=== PATIENT | male | born 1950 | race Two or more races ===

== ENCOUNTER 2024-08-31 08:47 | Inpatient (IN) | payer MEDICARE ==
[2024-08-30 09:54] LABS: Urine Bacteria None Seen /hpf (None Seen)
[2024-08-30 10:07] LABS: Basophils # (auto) 0 10 ^3/uL (0-0.2); Basophils % (auto) 0.5 % (0.0-2.0); Eosinophils # (auto) 0.1 10 ^3/uL (0-0.8); Eosinophils % (auto) 1.4 % (0.0-7.0); Hematocrit 42.5 % (41.0-53.0); Hemoglobin 14.4 g/dL (13.5-17.5); Lymphocytes # (auto) 1.5 10 ^3/uL (0.4-5.4); Lymphocytes % (auto) 24.4 % (10.0-50.0); Mean Corpuscular Hemoglobin 29.6 pg (28.0-32.0); Mean Corpuscular Hgb Conc. 33.8 g/dL (32.0-36.0); Mean Corpuscular Volume 87.5 fL (80.0-100.0); Monocytes # (auto) 0.5 10 ^3/uL (0-1.3); Monocytes % (auto) 7.5 % (0.0-12.0); Neutrophils # (auto) 4.2 10 ^3/uL (1.6-8.6); Neutrophils % (auto) 66.2 % (37.0-80.0); Nucleated Red Blood Cells % 0.1 %; Platelet Count (auto) 208 10^3/uL (140-450); Red Blood Cells 4.86 10^6/uL (4.5-5.90); Red Cell Distribution Width 14.7 % (11.8-14.3); White Blood Cell 6.3 10^3/uL (4.4-10.8)
[2024-08-30 10:15] LABS: Urine Blood Negative /uL (Negative); Urine Clarity Clear (Clear); Urine Color Yellow (Yellow); Urine Protein, UAD Negative (Negative); Urine Specific Gravity 1.017 (1.001-1.035); Urine Squamous Epithelial Cell FEW /hpf (<5); Urine Urobilinogen Normal (Negative); Urine WBC 1 /HPF (0-3); Urine pH 5.5 (5.0-9.0)
[2024-08-30 10:22] LABS: INR 1.05 (0.9-1.15); Prothrombin Time 11.1 sec (9.3-11.8)
[2024-08-30 10:44] LABS: Albumin 4.3 g/dL (3.2-4.8); Anion Gap 8 (5-15); Aspartate Aminotransferase 26 U/L (<34); BUN/Creatinine Ratio 14.8 (10.0-20.0); Bilirubin, Total 0.5 mg/dL (0.2-1.0); Blood Urea Nitrogen 12 mg/dL (9-23); Calcium 10.3 mg/dL (8.7-10.4); Carbon Dioxide 28 mmol/L (20-31); Glucose 105 mg/dL (74-106); Potassium 4.4 mmol/L (3.5-5.1); Sodium 144 mmol/L (136-145); Total Protein 6.5 g/dL (5.7-8.2)
[2024-08-30 10:46] LABS: Alanine Aminotransferase 41 U/L (7-40); Alkaline Phosphatase 122 U/L (46-116); Chloride 108 mmol/L (98-107)
[~2024-08-31] VITALS: Ht 170.2 cm; Wt 90.1 kg
[2024-08-31] MEDS ORDERED: SODIUM CHLORIDE LOCK 50 ML ONE (09:20)
[2024-08-31] MEDS ORDERED: HYDROmorphone HCL 2 MG/ML VL/or syr ONE (09:20)
[2024-08-31] MEDS ORDERED: fentaNYL CITRATE 5 ML ONE ×2 (09:20→13:16)
[2024-08-31] MEDS ORDERED: KETAMINE 50mg/ML 1ml syringe ONE (09:20)
[2024-08-31] MEDS ORDERED: DexAMETHasone SOD PHOS 10MG/1ML VIAL INJ ONE (09:20)
[2024-08-31] MEDS ORDERED: MIDAZOLAM HCL 2MG/2ML 2ml VIAL (1mg/ml) ONE (09:20)
[2024-08-31] MEDS ORDERED: fentaNYL CITRATE 100 MCG/2 ML VL ONE (09:20)
[2024-08-31] MEDS ORDERED: ROCURONIUM 10MG/ML 10ML VIAL IV ONE (09:20)
[2024-08-31] MEDS ORDERED: PROPOFOL 10 MG/ML 20 ML IV ONE (09:20)
[2024-08-31] MEDS ORDERED: LIDOCAINE 1% INJ PF 5ML AMP ONE (09:20)
[2024-08-31] MEDS ORDERED: LIDOCAINE 2% TOPICAL JELLY 5 ML URJT TOP ONE (09:20)
[2024-08-31] MEDS ORDERED: ONDANSETRON HCL 4 MG/2 ML VIAL ONE (09:20)
[2024-08-31] MEDS: ceFAZolin 2 GM/D5W50ml 50 ML IV ONE (09:36)
[2024-08-31] MEDS: TRANEXAMIC ACID 20 ML ONE (09:53)
[2024-08-31] MEDS: levoFLOXacin 500MG 100 ML IV ONE (09:54)
--- NOTE | 2024-08-31 10:29 | DVH ---
XY CHEST PORTABLE, HISTORY: PRE-OP EVAL COMPARISON: None None TECHNICAL DATA: 1 view of the chest was obtained. FINDINGS: Lines and tubes: None Cardiomediastinal silhouette: normal Pulmonary vasculature: normal Lung expansion: normal Lung airspace: normal Lung interstitium: normal Pleura: normal Pneumothorax: no Bones: Unremarkable Other: no IMPRESSION: No acute intrathoracic abnormality.
--- NOTE | 2024-08-31 10:32 | DVHHP2 ---
Admitting Diagnosis: lumbar spinal stenosis History of Present Illness Timing/Duration of Neck Pain: Getting worse Quality of Neck Pain: Aching, Burning, Cramping Timing/Duration of Back Pain: Getting worse Quality of Back Pain: Aching, Burning, Cramping Back Pain Location: Lumbar spine Back Pain Radiation: Buttocks, Thigh area, Knees, Feet H&P Exam Vital Signs Vital Signs Date Time Temp Pulse Resp B/P (MAP) Pulse Ox O2 Delivery O2 Flow Rate FiO2 08/31/24 09:35 97.2 89 16 144/83 (103) 97 97.2 General Appeara: Well developed, Well nourished, Normal Appearance Head Exam: Normal inspection Neck Exam: Normal inspection, Non-tender, Normal alignment Ear Exam: bilateral ear Auricle normal, bilateral ear Canal normal, bilateral ear TM normal Nasal Exam: Normal inspection Abdominal Exam: Normal bowel sounds, Soft, No tenderness, No hepatospenomegaly, No masses Rectal Exam: Deferred Back Exam: Decreased range of motion, Muscle spasm Male Genital Exam: Not done Shoulder Exam: Normal inspection, Non-tender, Normal ROM Elbow/Forearm Exam: Normal inspection, Non-tender, Normal ROM Hand Exam: Normal inspection, Non-tender, Normal ROM Hip exam: Normal inspection, Non-tender, Normal range of motion Legs: bilateral leg non-tender, bilateral leg normal inspection, bilateral leg normal range of motion, bilateral leg no evidence of injury Knees: bilateral knee non-tender, bilateral knee normal inspection, bilateral knee normal range of motion, bilateral knee no evidence of injury Ankle Exam: bilateral ankle Normal inspection, bilateral ankle Non-tender, bilateral ankle Normal range of motion, bilateral ankle No evidence of injury Tendon/ Neuro: Motor deficit, Sensory deficit [place] Exam: Normal hearing, Normal speech, PERRL Motor/Sensory: Weak motor strength RLE, Weak motor strength LLE Deep Tendon Ref: All intact Neuro/Mental St: Alert, Oriented Appearance: Appropriate appearance, Appropriate insight Eye contact/ Speech: Cooperative, Good eye contact, Normal speech Coordination/Gait: Normal finger->nose, Normal gait, Negative Romberg's sign Skin Exam: Normal inspection, Normal color, Warm/dry Lymphatic: Normal inspection Labs/Xrays Labs Test 08/30/24 09:35 Range/Units White Blood Count 6.3 4.4-10.8 10^3/uL Red Blood Count 4.86 4.5-5.90 10^6/uL Hemoglobin 14.4 13.5-17.5 g/dL Hematocrit 42.5 41.0-53.0 % Mean Corpuscular Volume 87.5 80.0-100.0 fL Mean Corpuscular Hemoglobin 29.6 28.0-32.0 pg Mean Corpuscular Hemoglobin Concent 33.8 32.0-36.0 g/dL Red Cell Distribution Width 14.7 H 11.8-14.3 % Platelet Count 208 140-450 10^3/uL Mean Platelet Volume 9.8 6.9-10.8 fL Neutrophils (%) (Auto) 66.2 37.0-80.0 % Lymphocytes (%) (Auto) 24.4 10.0-50.0 % Monocytes (%) (Auto) 7.5 0.0-12.0 % Eosinophils (%) (Auto) 1.4 0.0-7.0 % Basophils (%) (Auto) 0.5 0.0-2.0 % Neutrophils # (Auto) 4.2 1.6-8.6 10 ^3/uL Lymphocytes # (Auto) 1.5 0.4-5.4 10 ^3/uL Monocytes # (Auto) 0.5 0-1.3 10 ^3/uL Eosinophils # (Auto) 0.1 0-0.8 10 ^3/uL Basophils # (Auto) 0 0-0.2 10 ^3/uL Nucleated Red Blood Cells 0.1 % Prothrombin Time 11.1 9.3-11.8 sec Prothrombin Time INR 1.05 0.9-1.15 Activated Partial Thromboplast Time 27.0 24.5-34.5 SEC Urine Color Yellow Yellow Urine Clarity Clear Clear Urine pH 5.5 5.0-9.0 Urine Specific [place] 1.017 1.001-1.035 Urine Protein Negative Negative Urine Ketones Negative Negative Urine Blood Negative Negative /uL Urine Nitrite Negative Negative Urine Bilirubin Negative Negative Urine Urobilinogen Normal Negative mg/dL Urine Leukocyte Esterase Negative Negative /uL Urine RBC 1 0 - 3 /hpf Urine Microscopic WBC 1 0-3 /HPF Urine Squamous Epithelial Cells Few <5 /hpf Urine Bacteria None seen None Seen /hpf Urine Glucose Normal Normal mg/dL Sodium Level 144 136-145 mmol/L Potassium Level 4.4 3.5-5.1 mmol/L Chloride Level 108 H 98-107 mmol/L Carbon Dioxide Level 28 20-31 mmol/L Anion Gap 8 5-15 Blood Urea Nitrogen 12 9-23 mg/dL Creatinine 0.81 0.700-1.30 mg/dL Glomerular Filtration Rate Calc 94 >90 mL/min BUN/Creatinine Ratio 14.8 10.0-20.0 Serum Glucose 105 74-106 mg/dL Calcium Level 10.3 8.7-10.4 mg/dL Total Bilirubin 0.5 0.2-1.0 mg/dL Aspartate Amino Transferase (AST) 26 <34 U/L Alanine Aminotransferase (ALT) 41 H 7-40 U/L Alkaline Phosphatase 122 H 46-116 U/L Total Protein 6.5 5.7-8.2 g/dL Albumin 4.3 3.2-4.8 g/dL Assessment/Plan Primary Diagnosis lumbar spinal stenosis Plan admit for elective lumbar spine surgery Plan discussed with: Patient DAHLIA VIVAS MD Aug 31, 2024 10:32
[2024-08-31] MEDS ORDERED: HYDROmorphone HCL 2 MG/ML VL/or syr IV PRN (11:15)
[2024-08-31] MEDS ORDERED: MORPHINE SULFATE 4 MG/ML SYR/VIAL IV PRN (11:15)
[2024-08-31] MEDS: METOCLOPRAMIDE HCL 5MG/ml INJ 2ml VIAL IV ONE (11:15)
[2024-08-31] MEDS: KETOROLAC TROMETH 30 MG/ML 1ML VIAL IV ONE (11:15)
--- NOTE | 2024-08-31 11:16 | DVHPN2 ---
Progress Note - Surgical Date Seen: Sep 01, 2024 Post op day Post op day: 1 Subjective Patient reports: No new complaints, Feels better Review of Systems: HEENT:Normal, CVS:Normal, RESPIRATORY:Normal, GI:Normal, :Normal, MSK:Normal (Patient has a history of low back pain), NEURO:Abnormal (Patient has a history of low back pain affecting both legs) Objective Vital signs Vital Sign Date Time Temp Pulse Resp B/P (MAP) Pulse Ox O2 Delivery O2 Flow Rate FiO2 08/31/24 09:35 97.2 89 16 144/83 (103) 97 97.2 Medications Current Medications Medications Dose Ordered Sig/Domenic Route Start Time Stop Time Status Last Admin Dose Admin Hydromorphone HCl 0.5 mg Q10M PRN IV 08/31/24 11:15 08/31/24 11:56 Morphine Sulfate 2 mg Q4H PRN IV 08/31/24 11:15 08/31/24 15:16 Hydromorphone HCl 0.25 mg Q10M PRN IV 08/31/24 11:15 08/31/24 11:46 Morphine Sulfate 1 mg Q30M PRN IV 08/31/24 12:00 08/31/24 14:01 Laboratory Laboratory Tests 08/30/24 09:35 Test 08/30/24 09:35 Range/Units Serum Glucose 105 74-106 mg/dL Examination: GENERAL:Normal, HEENT:Normal, NECK:Normal, LUNGS:Normal, CVS:Normal, ABDOMEN:Normal, MSK:Normal (Patient reports resolution and preoperative symptoms, patient able to ambulate in room with little assistance), SKIN:Normal (Cristino dressing intact drain 1. With 175 mL out on the day of surgery and 80 ML out overnight shifts day one, drain 2. Reported to have minimal drainage but it has not been recorded. Drain 2. Has been discontinued), NEURO:Normal (She reports resolution of preoperative symptoms able to ambulate with minimal assistance, is experiencing expected postoperative low back pain), :Normal Problem List/Assessment/Plan Problems: (1) Postoperative pain after spinal surgery (2) Muscle spasm of back Assessment and Plan Events of today Patient tolerating food and liquids we will convert IV fluids to normal saline lock Drain 2. With minimal output since surgery discontinued today Continue to monitor drain one Physical therapy evaluation and recommendations still pending Patient reporting resolution and preoperative symptoms, patient experiencing expected postoperative pain which is well controlled with current pain regime Confirm patient's pharmacy of choice Patient is progressing to discharge as soon as drain 1 is discontinued, patient will be cleared to discharge POD # 1 -Disposition: -Pending -Discharge RX: Pending -Follow up appointment: with Dr Perez on [phone] [id number] [facility] [address] [place] [address] -Pain: - IV pain meds post op day 1, with PO supplementation, goal is to progress weaning off IV medications and control pain with PO only. morphine 1mg q 4 hours (PAIN 7-10) - P.O. analgesics:Tylenol 650MG (PAIN 1-3) [place] 10/325 mg (PAIN 4-6) - Muscle relaxers scheduled administration. This is a beneficial medications for the incisional pain as it is mostly related to muscle spasms. Flexeril 10 mg TID - Cepacol throat lozenges as needed for sore throat -Antibiotics Operative recommendations: -Postoperative dose:-Post operative antibiotics cefazolin 1 g IV piggyback every 8 hours x 48 hours total of 6 doses -DVT PPX: -Hold all chemical DVT/ blood thinners for 14 days postoperatively -use mechanical DVT PPX such as SCD's, ambulation -Activity: -Pending PT evaluation and patients progression -Sit at side of bed for meals -Goal: Ambulate independently and safely (may use assistive devices if needed) -Medical Therapy goals: -Afebrile- Patient may develop a expected post operative fever by day 2-3, this may not be accompanied with a elevation in WBC. if fever develops: Acetaminophen for fever. Albuterol nebulizer Tx every 12 hours for 24 hours to facilitate adequate lung expansion and prevent development of atelectasis. -Euglycemic: bloods sugars under 130mmol/L for optimal healing -Normotensive: Avoid events of hypertension. This helps to keep post operative healing intact and avoids destabilization of beneficial hemostatic coagulation. -Lumbar: -If patient is comfortable encouraged the patient to lay on their side to facilitate wound healing -Drains: -Hemovac drains: These will be to full compression unless otherwise ordered. Please record and document output AND characteristic of fluid present independently EVERY 6 hours more often as needed. if there in no output indicate this by documenting 0ml. If output is greater than 100 ml in one hour of adam blood call provider. These drains will be removed once the drainage is at a acceptable level (generally less than 100ml in 24 hours) -Cristino dressing: This will stay in place and will be removed at the patients follow up visit. Nursing is to assess the seal and power source. The seal should be intact and the power source should have a green flashing light indicating it is functioning well. Batteries can last up to 14 days. If a leak develops the dressing edges can be reinforced with a Tegaderm dressing to reestablish intact seal. The Cristino dressing is NOT a wound vac. This does not get changed, it does not need home health management. -Record output independently, drain 1. Is a deep drain and drain 2. Is a superficial drain. Wound drainage is described by type, color, amount, and odor. Drainage can be 1 Serous: Clear and thin, may be present in healing healthy wound. 2 Serosanguineous containing blood may also be present and healthy healing wound 3. Sanguinous primarily blood 4. Purulent this is thick, white, and pus like. It may be indicated to give of a infection and should constitute a call to the provider immediately with the plan that the sample should be cultured. -Tariq: discontinued in OR -Dressings Take care not to disrupt the CRISTINO dressing seal. If there is a break in the seal it can be trouble shot with a Tegaderm dressing. -Dressing to Hemovac drains may be changed once the drains have been removed by the provider. -Bowel management: -Colace 100mg bid -Diet: -Clear liquid diet and advance as patient tolerates within dietary limitations ( example: diabetic, Cardiac) -Incentive Spirometer: -10 x hour while awake, RN please educate and observe repeat demonstration, have IS at bedside POD #1 -X-rays: - none indicated at this time -Consults: -Physical Therapy evaluation, treatment recommendations, and discharge recommendations Call with questions Ban Garcia ACNP- Orthopaedic Spine Surgery nurse practitioner For Dr Soraya Perez Patient was examined, chart reviewed, labs evaluated, and diagnostic studies and findings analyzed. Case was discussed with Dr. Lazarus Perez who formulated the plan of care. This medical document was created using an electronic medical record system with [employer] system. Although this document has been carefully reviewed, there might still be some phonetic and typographical errors. These areas are purely typographical due to imperfections of the software programs, and do not reflect any compromise in the patient's medical care. Plan discussed with Plan discussed with: Patient, Spouse, Other (Jackelyn RN 402) Visit Coding Surgery Date of Service if different f: Aug 31, 2024 Billing Provider: BESSIE GARCIA NP Surgery Visit Codes: NOT BILLABLE BESSIE GARCIA NP Aug 31, 2024 11:16
[2024-08-31] MEDS ORDERED: MORPHINE SULFATE INJ 2 MG/ml SYRG IV PRN ×3 (12:00→14:00)
[2024-08-31] MEDS: GELATIN 1 SPONGE SIZE 100 TOP ONE (13:05)
[2024-08-31] MEDS: THROMBIN (BOVINE) 5000 UNIT SOL VIAL ONE (13:05)
[2024-08-31] MEDS ORDERED: ePHEDrine SULFATE 50 MG/ML AMP ONE (13:57)
[2024-08-31] MEDS: CYCLOBENZAPRINE HCL 10 MG TAB PO SCH (14:00)
[2024-08-31] MEDS ORDERED: NITROGLYCERIN 0.4 MG SL TAB SL PRN (14:00)
[2024-08-31] MEDS: ceFAZolin 1GM/50ML 50 ML IV SCH (14:00)
[2024-08-31] MEDS ORDERED: ACETAMINOPHEN 325 MG TAB PO PRN (14:00)
--- NOTE | 2024-08-31 14:05 | DVHOP2 ---
Operative Report - 2 Report Details Date: 08/31/24 Preop Diagnosis: lumbar spinal stenosis with severe neurogenic claudication Postop Diagnosis: Lumbar stenosis with neurogenic claudication Surgeon: Lazarus Perez MD Resource Conservation Manager: Sendy Gómez NP Anesthesiologist: shuan Anesthesia: General Consent: The patient was informed of the risks and benefits of the procedure. These include but are not limited to complications of anesthesia, postoperative infection, incomplete relief of symptoms, recurrence of symptoms, damage to blood vessels, nerves and tendons, deep venous thrombosis, pulmonary embolism and possible need for repeat surgery in the future. Name of Procedure Performed see detailed note Procedure Details Procedure Details: Pre-op Diagnosis: Lumbar Degenerative Disk Disease and Lumbar Spinal Stenosis causing Incapacitating back pain, radiculopathy and progressive neurologic deficit Post-op Diagnosis: Lumbar Degenerative Disk Disease and Lumbar Spinal Stenosis causing Incapacitating back pain, radiculopathy and progressive neurologic deficit Procedure: Lumbar 5 laminectomy with Lumbar 5 foraminotomies and facetectomies to decompress central canal and Lumbar 5 nerve roots Lumbar 4 laminectomy with Lumbar 4 foraminotomies and facetectomies to decompress central canal and Lumbar 4 nerve roots Lumbar 3 laminectomy with Lumbar 3 foraminotomies and facetectomies to dec ompress central canal and Lumbar 4 nerve roots Lumbar 3 to 5 posterior spinal inter transverse fusion with bone graft Lumbar 3 to 5 posterior spinal instrumentation with pedicle screws Local Bone Autograft For Fusion Allograft Bone Substitute (Bacterin) to augment Fusion Use of Demineralized Bone Matrix to Augment Fusion Microscope For Microdissection Surgeon: Lazarus Perez MD Assist: NHI Cruz Anesthesia: General Fluids and EBL: See anesthesia note Patient was seen in the Pre Anesthesia Care Unit (PACU) and the operative site was initialed by me. All questions were answered to the patients satisfaction and chart reviewed. The patient was taken to the operative room where pre- operative antibiotics were given 30 minutes prior to incision. General anesthesia was induced and neuro-monitoring leads placed. Tariq catheter was placed. The [facility] While positioning, I made sure that the belly was free to allow proper expansion of the lungs. The hips were extended and all bony prominences padded. The shoulders were abducted 80 degree and the elbows flexed 100 degrees with no tension on the brachial plexus. I check the foot arterial pulses and they were palpable. The patient was prepped and draped and time out was taken at this time per usual protocol. At this time, the C-arm fluoroscope was brought in and was used to dia the incision borders proximally and distally. Using a Number 10 Blade, an incision was made extending it proximally and distally per C arm dia from the posterior spinous process of lumbar 4,5 down to the lumbo-dorsal fascia. All bleeding was controlled with electrocautery. Self-retaining retractors were placed. Electrocautery was then used to take down the lumbo-dorsal fascia, to free the muscle off the bone bilaterally. A Kiera retractor was placed over the posterior spinous process proximally and a lateral C-arm fluoroscope image was taken to insure we were at the correct level. Next, using bovie electro cautery, The deep fascia laterally to the facet joints was removed to expose the transverse processes of lumbar 3, 4 and 5 while taking c are to avoid injuring the facet capsule at the proximal end of the incision. Next, the microscope was bought in for visualization and using a Luxell rongeur, the posterior spinous process of lumbar 3 and 4 and 5 bone were removed and the bone was saved for use as local autograft. I used alternating Kerison 2 mm and 3 mm rongeurs to perform central laminectomies lumbar 5 and 4 and 3 to decompress the central canal. Next using alternating Kerison 2mm and 3 mm rongeurs, the superior articular facets of lumbar 3, 4 and 5 were removed bilaterally to decompress the lateral recess (facetectomies) and then extended proximally to decompress the foramen bilaterally (foraminotomies). I used a ball tipped nerve probed to insure that the respective nerve roots were able to be mobilized 5mm in each direction were unimpeded in the lateral recess and foramen. Next I carefully inspected the dura to make sure no durotomy was visible and it was not. I covered the exposed dura with gelfoam soaked in thrombin and the microscope was wheeled away from the operative filed. The C-arm fluoroscope was brought in and perfect AP views of the lumbar 4 and 5 pedicles were obtained. I placed bilateral pedicle screws at these levels by: using a Lenke awl to make a sow farm manager hole, then a ball tip robe to make sure there was no pedicle breach, then a tap to prepare the track and a 6.5 mm diameter 45 mm length pedicle screw was placed bilaterally. This step to place bilateral pedicle screws was repeated up to the lumbar 3, 4 and 5 level. Next, the c-arm fluoroscope took an AP and lateral x-ray to ensure proper placement of the pedicle screws. Next, the neuro-stimulation probe was placed over the tip of each screw and each screw stimulated only after a current greater than 10 mA was delivered to the screw. Next , I took a [place] Drill to decorticate the transverse process which were exposed and local bone graft, Bacterin allograft bone substitute and Demineralized bone matrix were placed along the inter transverse process intervals bilaterally (the fusion bed). Next a curved helder sized to fit the pedicle screw interval was placed and secured to each pedicle screw using set screws, The set screws were tightened using a torque screwdriver (set to 10 N*M torque) to secure the helder to the pedicle screws bilaterally. Final AP and lateral C arm fluoroscopic films were taken at this time. Next a 10 [place] diameter Hemovac drain was laced deep to the lumbo- dorsal fascia. The lumbo-dorsal fascia was closed with interrupted 0-Vicryl sutures. The subcutaneous tissue was closed with interrupted 2-0 Vicryl sutures. The skin was closed with running 2-0 nylon suture. Sterile dressings were place. The pt. was turned supine onto the stretcher, extubated and taken to the recovery room in stable condition. CPT: 62801,[id number] Condition Stable Disposition Still a Patient LAZARUS PEREZ MD Aug 31, 2024 14:05
[2024-08-31 14:48] VITALS: PULSE 92; RESP 12; O2SAT 93
[2024-08-31] MEDS: HYDROmorphone HCL 2 MG/ML VL/or syr IV PRN (14:55)
[2024-08-31] MEDS: HYDROmorphone HCL 2 MG/ML VL/or syr ONE (14:56)
--- NOTE | 2024-08-31 15:29 | DVH ---
C-ARM FLUOROSCOPY: PROCEDURE: l3-l5 decompression FLUOROSCOPY TIME: 41.2 sec DAP: 21.71 mgy FINDINGS: Spot intraoperative C arm radiographs demonstrating L3-L5 decompression. IMPRESSION: Please refer to surgical report for detailed findings.
[2024-08-31] MEDS: ACETAMINOPHEN IV 1000 MG/100ML (10MG/ML) IV ONE (15:30)
[2024-08-31] MEDS: MIDAZOLAM HCL 2MG/2ML 2ml VIAL (1mg/ml) IV PRN (15:48)
--- NOTE | 2024-08-31 16:44 | DVHINCON2 ---
Date Seen: Aug 31, [address] VIVAS Allergies: Coded Allergies: NO KNOWN ALLERGIES (Unverified , 08/31/24) Current Medications Current Medications Medications (Trade) Dose Ordered Sig/Domenic Route PRN Reason Start Time Stop Time Status Last Admin Hydromorphone HCl (Dilaudid Injection) 0.5 mg Q10M PRN IV SEVERE PAIN (7-10 PAIN SCALE) 08/31/24 11:15 08/31/24 11:56 DC Morphine Sulfate 2 mg Q4H PRN IV BREAKTHRU PAIN SCALE 7-10 08/31/24 11:15 08/31/24 15:16 DC Hydromorphone HCl (Dilaudid Injection) 0.25 mg Q10M PRN IV MODERATE PAIN (4-6 PAIN SCALE) 08/31/24 11:15 08/31/24 11:46 DC Morphine Sulfate 1 mg Q30M PRN IV SEVERE PAIN (7-10 PAIN SCALE) 08/31/24 12:00 08/31/24 14:01 DC Dextrose/Sodium Chloride 1,000 ml @ 100 mls/hr Q10H IV 08/31/24 14:00 Ondansetron HCl (Zofran) 4 mg Q4HP PRN IV NAUSEA / VOMITING 08/31/24 14:00 Acetaminophen (Tylenol Tablet) 650 mg Q6HP PRN PO MILD PAIN (1-3 PAIN SCALE) 08/31/24 14:00 Acetaminophen/ Hydrocodone Bitart ([place] 10/325MG Tab) 1 tab Q6HP PRN PO MODERATE PAIN (4-6 PAIN SCALE) 08/31/24 14:00 Morphine Sulfate 1 mg Q4HP PRN IV SEVERE PAIN (7-10 PAIN SCALE) 08/31/24 14:00 08/31/24 14:56 DC Cyclobenzaprine HCl (Flexeril Tablet) 10 mg TID PO 08/31/24 14:00 Docusate Sodium (Colace Capsule) 100 mg BID PO 08/31/24 22:00 Cefazolin Sodium 50 ml @ 100 mls/hr Q8HR IV 08/31/24 14:00 09/02/24 06:29 Nitroglycerin (Ntrostat Sublingual) 0.4 mg Q5MINP PRN SL FOR CHEST PAIN 08/31/24 14:00 Morphine Sulfate 2 mg Q30M PRN IV FOR CHEST PAIN 08/31/24 14:00 Morphine Sulfate 2 mg Q4HP PRN IV SEVERE PAIN (7-10 PAIN SCALE) 08/31/24 15:00 Midazolam HCl (Versed Injection) 1 mg [id number] PRN IV SEDATION 08/31/24 15:30 08/31/24 23:59 Vital Signs Vital Signs Date Time Temp Pulse Resp B/P (MAP) Pulse Ox O2 Delivery O2 Flow Rate FiO2 08/31/24 09:35 97.2 89 16 144/83 (103) 97 97.2 Labs/Diagnostic Data Labs Test 08/30/24 09:35 Range/Units White Blood Count 6.3 4.4-10.8 10^3/uL Red Blood Count 4.86 4.5-5.90 10^6/uL Hemoglobin 14.4 13.5-17.5 g/dL Hematocrit 42.5 41.0-53.0 % Mean Corpuscular Volume 87.5 80.0-100.0 fL Mean Corpuscular Hemoglobin 29.6 28.0-32.0 pg Mean Corpuscular Hemoglobin Concent 33.8 32.0-36.0 g/dL Red Cell Distribution Width 14.7 H 11.8-14.3 % Platelet Count 208 140-450 10^3/uL Mean Platelet Volume 9.8 6.9-10.8 fL Neutrophils (%) (Auto) 66.2 37.0-80.0 % Lymphocytes (%) (Auto) 24.4 10.0-50.0 % Monocytes (%) (Auto) 7.5 0.0-12.0 % Eosinophils (%) (Auto) 1.4 0.0-7.0 % Basophils (%) (Auto) 0.5 0.0-2.0 % Neutrophils # (Auto) 4.2 1.6-8.6 10 ^3/uL Lymphocytes # (Auto) 1.5 0.4-5.4 10 ^3/uL Monocytes # (Auto) 0.5 0-1.3 10 ^3/uL Eosinophils # (Auto) 0.1 0-0.8 10 ^3/uL Basophils # (Auto) 0 0-0.2 10 ^3/uL Nucleated Red Blood Cells 0.1 % Prothrombin Time 11.1 9.3-11.8 sec Prothrombin Time INR 1.05 0.9-1.15 Activated Partial Thromboplast Time 27.0 24.5-34.5 SEC Urine Color Yellow Yellow Urine Clarity Clear Clear Urine pH 5.5 5.0-9.0 Urine Specific [place] 1.017 1.001-1.035 Urine Protein Negative Negative Urine Ketones Negative Negative Urine Blood Negative Negative /uL Urine Nitrite Negative Negative Urine Bilirubin Negative Negative Urine Urobilinogen Normal Negative mg/dL Urine Leukocyte Esterase Negative Negative /uL Urine RBC 1 0 - 3 /hpf Urine Microscopic WBC 1 0-3 /HPF Urine Squamous Epithelial Cells Few <5 /hpf Urine Bacteria None seen None Seen /hpf Urine Glucose Normal Normal mg/dL Sodium Level 144 136-145 mmol/L Potassium Level 4.4 3.5-5.1 mmol/L Chloride Level 108 H 98-107 mmol/L Carbon Dioxide Level 28 20-31 mmol/L Anion Gap 8 5-15 Blood Urea Nitrogen 12 9-23 mg/dL Creatinine 0.81 0.700-1.30 mg/dL Glomerular Filtration Rate Calc 94 >90 mL/min BUN/Creatinine Ratio 14.8 10.0-20.0 Serum Glucose 105 74-106 mg/dL Calcium Level 10.3 8.7-10.4 mg/dL Total Bilirubin 0.5 0.2-1.0 mg/dL Aspartate Amino Transferase (AST) 26 <34 U/L Alanine Aminotransferase (ALT) 41 H 7-40 U/L Alkaline Phosphatase 122 H 46-116 U/L Total Protein 6.5 5.7-8.2 g/dL Albumin 4.3 3.2-4.8 g/dL Assessment SEE DICTATED NOTE Plan discussed with: Patient Date of Service: Aug 31, 2024 Billing Provider: YAMILE PRADO MD Common Visit Codes: [id number] INP/OBS CARE (HIGH) YAMILE PRADO MD Aug 31, 2024 16:44
[2024-08-31 17:04] VITALS: PULSE 90; RESP 16; O2SAT 97
[2024-08-31 17:07] VITALS: BP 124/71; PULSE 90; RESP 16; TEMP 96.8; O2SAT 98
[2024-08-31] MEDS: MORPHINE SULFATE INJ 2 MG/ml SYRG IV PRN (17:51)
[2024-08-31] MEDS: ONDANSETRON HCL 4 MG/2 ML VIAL IV PRN (17:54)
[2024-08-31] MEDS: D5W/SOD CHLO 0.9% 1,000 ML IV SCH (17:58)
[2024-08-31 20:00] VITALS: PULSE 89
--- NOTE | 2024-08-31 20:47 | DVHINCON2 ---
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 The patient at this time complains of pain in the back. No chest pain, no shortness of breath, no nausea or vomiting. REVIEW OF SYSTEMS: Review of rest of systems are otherwise currently negative. PAST MEDICAL HISTORY: Significant for hypertension and hyperlipidemia. MEDICATIONS: Include lisinopril and Pravachol. ALLERGIES: No known drug allergies. SOCIAL HISTORY: He does smoke. Alcohol. Lives at home with his . FAMILY HISTORY: Negative. PHYSICAL EXAMINATION: GENERAL: The patient is awake and alert. VITAL SIGNS: Temperature 97.2, pulse 89 per minute, blood pressure 144/83. SHEENT: Unremarkable. NECK: There is no JVD. No pedal edema. LUNGS: Equal bilaterally. No added sounds. CARDIOVASCULAR: S1 and S3 is regular without murmurs. ABDOMEN: Soft. There is no organomegaly. NEUROLOGIC: Nonfocal. MUSCULOSKELETAL: There is a dressing and a drain in place at the lumbar spine. ASSESSMENT AND PLAN: * Hypertension, for which the patient's blood pressure will be monitored. * Hyperlipidemia. * Status post lumbar spine surgery for lumbar canal stenosis for which the patient will be placed on pain medications and IV fluids. MD COLTEN Santo/SUB TID: [id number] RECEIPT: [id number]
[2024-08-31 21:00] VITALS: BP 119/61; PULSE 92; RESP 17; TEMP 97.8; O2SAT 99
[2024-08-31] MEDS: DOCUSATE SOD 100 MG CAP PO SCH (21:33)
[2024-08-31] MEDS: HYDROcodone-ACET 10/325MG TAB PO PRN (21:33)
[2024-09-01] VITALS (8 sets, daily range): BP systolic 115–153; BP diastolic 56–72; PULSE 65–92; RESP 18–20; TEMP 97.9–98.7; O2SAT 94–99
[2024-09-01] MEDS: HYDROmorphone HCL 2 MG/ML VL/or syr IV ONE (01:20)
[2024-09-01 06:49] LABS: Basophils # (auto) 0 10 ^3/uL (0-0.2); Eosinophils # (auto) 0 10 ^3/uL (0-0.8); Hematocrit 37.1 % (41.0-53.0); Hemoglobin 12.3 g/dL (13.5-17.5); Lymphocytes # (auto) 0.8 10 ^3/uL (0.4-5.4); Mean Corpuscular Hemoglobin 28.9 pg (28.0-32.0); Mean Corpuscular Hgb Conc. 33.3 g/dL (32.0-36.0); Mean Corpuscular Volume 86.9 fL (80.0-100.0); Monocytes # (auto) 0.6 10 ^3/uL (0-1.3); Monocytes % (auto) 4.3 % (0.0-12.0); Neutrophils % (auto) 89.7 % (37.0-80.0); Platelet Count (auto) 194 10^3/uL (140-450); Red Blood Cells 4.26 10^6/uL (4.5-5.90); Red Cell Distribution Width 14.3 % (11.8-14.3); White Blood Cell 13.4 10^3/uL (4.4-10.8)
[2024-09-01 07:08] LABS: Alanine Aminotransferase 29 U/L (7-40); Alkaline Phosphatase 97 U/L (46-116); Anion Gap 9 (5-15); BUN/Creatinine Ratio 13.1 (10.0-20.0); Blood Urea Nitrogen 11 mg/dL (9-23); Calcium 8.7 mg/dL (8.7-10.4); Carbon Dioxide 25 mmol/L (20-31); Chloride 106 mmol/L (98-107); Potassium 3.8 mmol/L (3.5-5.1); Sodium 140 mmol/L (136-145)
[2024-09-01 07:09] LABS: Albumin 3.5 g/dL (3.2-4.8)
[2024-09-01 07:10] LABS: Bilirubin, Total 0.4 mg/dL (0.2-1.0)
[2024-09-01 07:11] LABS: Aspartate Aminotransferase 35 U/L (<34); Glucose 168 mg/dL (74-106); Total Protein 5.4 g/dL (5.7-8.2)
--- NOTE | 2024-09-01 14:28 | DVHPN2 ---
Progress Note Date Seen: Sep 01, 2024 Medical Necessity Reason Pt with a Central, PICC or Fol: No Subjective Patient reports: No new complaints Review of Systems: HEENT:Normal, CVS:Normal, RESPIRATORY:Normal, GI:Normal, :Normal, MSK:Normal, NEURO:Normal Objective vital signs Vital Sign Date Time Temp Pulse Resp B/P (MAP) Pulse Ox O2 Delivery O2 Flow Rate FiO2 09/01/24 12:25 98.3 76 20 153/61 (91) 98 98.3 09/01/24 08:00 Room Air* 0 21 Total Intake and Output 08/31/24 08/31/24 09/01/24 15:00 23:00 07:00 Intake Total 200 ml 50 ml 370 ml Output Total 15 ml 10 ml 595 ml Balance 185 ml 40 ml -225 ml medications Current Medications Medications Dose Ordered Sig/Domenic Route Start Time Stop Time Status Last Admin Dose Admin Dextrose/Sodium Chloride 1,000 ml @ 100 mls/hr Q10H IV 08/31/24 14:00 09/01/24 08:55 100 MLS/HR Ondansetron HCl 4 mg Q4HP PRN IV 08/31/24 14:00 08/31/24 17:54 4 MG Acetaminophen 650 mg Q6HP PRN PO 08/31/24 14:00 Acetaminophen/ Hydrocodone Bitart 1 tab Q6HP PRN PO 08/31/24 14:00 08/31/24 21:33 1 TAB Cyclobenzaprine HCl 10 mg TID PO 08/31/24 14:00 09/01/24 13:46 10 MG Docusate Sodium 100 mg BID PO 08/31/24 22:00 09/01/24 08:56 100 MG Cefazolin Sodium 50 ml @ 100 mls/hr Q8HR IV 08/31/24 14:00 09/02/24 06:29 09/01/24 13:42 100 MLS/HR Nitroglycerin 0.4 mg Q5MINP PRN SL 08/31/24 14:00 Morphine Sulfate 2 mg Q30M PRN IV 08/31/24 14:00 Morphine Sulfate 2 mg Q4HP PRN IV 08/31/24 15:00 08/31/24 23:44 2 MG Hydralazine HCl 10 mg Q6HP PRN IV 08/31/24 16:45 Examination: GENERAL:Normal, HEENT:Normal, NECK:Normal, LUNGS:Normal, CVS:Normal, ABDOMEN:Normal, MSK:Normal, MSK:Abnormal (lumber drains), SKIN:Normal, NEURO:Normal, :Normal laboratory and microbiology Laboratory Tests 09/01/24 04:43 Test 09/01/24 04:43 Range/Units Serum Glucose 168 H 74-106 mg/dL Problem List/Assessment/Plan Problem List/Assessment/Plan * Hypertension, for which the patient's blood pressure will be monitored. * Hyperlipidemia. * Status post lumbar spine surgery for lumbar canal stenosis for which the patient will be placed on pain medications and IV fluids. advance care planning- full code- time spent 19 mins Plan discussed with: Patient My Orders My Orders Orders - YAMILE PRADO MD Procedure Category Date Status Time Hydralazine Injection PHA 08/31/24 In Process (Apresoline Inject 16:45 Date of Service: Sep 01, 2024 Billing Provider: YAMILE PRADO MD Common Visit Codes: [id number] INP/OBS CARE(HIGH) Secondary Visit Codes: [id number] CARE PLAN 30 MINUTES YAMILE PRADO MD Sep 01, 2024 14:28
[2024-09-02] VITALS (8 sets, daily range): BP systolic 120–162; BP diastolic 57–95; PULSE 63–96; RESP 18–20; TEMP 98–99.1; O2SAT 95–99
--- NOTE | 2024-09-02 08:05 | DVHPN2 ---
Progress Note - Surgical Date Seen: Sep 02, 2024 Post op day Post op day: 2 Subjective Patient reports: No new complaints Review of Systems: HEENT:Normal, CVS:Normal, RESPIRATORY:Normal, GI:Normal, :Normal Objective Vital signs Vital Sign Date Time Temp Pulse Resp B/P (MAP) Pulse Ox O2 Delivery O2 Flow Rate FiO2 09/02/24 05:08 98.2 63 18 124/57 (79) 99 98.2 09/01/24 20:00 Nasal Cannula* 2 28 Total Intake and Output 09/01/24 09/01/24 09/02/24 15:00 23:00 07:00 Intake Total 550 ml 800 ml Output Total 800 ml Balance 550 ml 0 ml Medications Current Medications Medications Dose Ordered Sig/Domenic Route Start Time Stop Time Status Last Admin Dose Admin Dextrose/Sodium Chloride 1,000 ml @ 100 mls/hr Q10H IV 08/31/24 14:00 09/02/24 05:38 100 MLS/HR Ondansetron HCl 4 mg Q4HP PRN IV 08/31/24 14:00 08/31/24 17:54 4 MG Acetaminophen 650 mg Q6HP PRN PO 08/31/24 14:00 Acetaminophen/ Hydrocodone Bitart 1 tab Q6HP PRN PO 08/31/24 14:00 09/01/24 22:14 1 TAB Cyclobenzaprine HCl 10 mg TID PO 08/31/24 14:00 09/02/24 05:33 10 MG Docusate Sodium 100 mg BID PO 08/31/24 22:00 09/01/24 22:15 100 MG Nitroglycerin 0.4 mg Q5MINP PRN SL 08/31/24 14:00 Morphine Sulfate 2 mg Q30M PRN IV 08/31/24 14:00 Morphine Sulfate 2 mg Q4HP PRN IV 08/31/24 15:00 08/31/24 23:44 2 MG Hydralazine HCl 10 mg Q6HP PRN IV 08/31/24 16:45 Laboratory Laboratory Tests 09/01/24 04:43 Test 09/01/24 04:43 Range/Units Serum Glucose 168 H 74-106 mg/dL Examination: GENERAL:Normal, HEENT:Normal, NECK:Normal, LUNGS:Normal, CVS:Normal, ABDOMEN:Normal, MSK:Normal (improvment in preoperative symptoms), SKIN:Normal (CRISTINO in place deep drain #1 with over 100 ml in past 24 hours. will keep another day), NEURO:Normal, :Normal Problem List/Assessment/Plan Problems: (1) Muscle spasm of back (2) Postoperative pain after spinal surgery Assessment and Plan Events of today Continue to monitor drain one Physical therapy evaluation and recommendations still pending Patient reporting resolution and preoperative symptoms, patient experiencing expected postoperative pain which is well controlled with current pain regime Patient is progressing to discharge as soon as drain 1 is discontinued, patient will be cleared to discharge POD # 2 -Disposition: -Pending -Discharge RX: Pending -Follow up appointment: with Dr Perez on [phone] [address] [facility] [address] [place] [id number] -Pain: - IV pain meds post op day 1, with PO supplementation, goal is to progress weaning off IV medications and control pain with PO only. morphine 1mg q 4 hours (PAIN 7-10) - P.O. analgesics:Tylenol 650MG (PAIN 1-3) [place] 10/325 mg (PAIN 4-6) - Muscle relaxers scheduled administration. This is a beneficial medications for the incisional pain as it is mostly related to muscle spasms. Flexeril 10 mg TID - Cepacol throat lozenges as needed for sore throat -Antibiotics Operative recommendations: -Postoperative dose:-Post operative antibiotics cefazolin 1 g IV piggyback every 8 hours x 48 hours total of 6 doses -DVT PPX: -Hold all chemical DVT/ blood thinners for 14 days postoperatively -use mechanical DVT PPX such as SCD's, ambulation -Activity: -Pending PT evaluation and patients progression -Sit at side of bed for meals -Goal: Ambulate independently and safely (may use assistive devices if needed) -Medical Therapy goals: -Afebrile- Patient may develop a expected post operative fever by day 2-3, this may not be accompanied with a elevation in WBC. if fever develops: Acetaminophen for fever. Albuterol nebulizer Tx every 12 hours for 24 hours to facilitate adequate lung expansion and prevent development of atelectasis. -Euglycemic: bloods sugars under 130mmol/L for optimal healing -Normotensive: Avoid events of hypertension. This helps to keep post operative healing intact and avoids destabilization of beneficial hemostatic coagulation. -Lumbar: -If patient is comfortable encouraged the patient to lay on their side to facilitate wound healing -Drains: -Hemovac drains: These will be to full compression unless otherwise ordered. Please record and document output AND characteristic of fluid present independently EVERY 6 hours more often as needed. if there in no output indicate this by documenting 0ml. If output is greater than 100 ml in one hour of adam blood call provider. These drains will be removed once the drainage is at a acceptable level (generally less than 100ml in 24 hours) -Cristino dressing: This will stay in place and will be removed at the patients follow up visit. Nursing is to assess the seal and power source. The seal should be intact and the power source should have a green flashing light indicating it is functioning well. Batteries can last up to 14 days. If a leak develops the dressing edges can be reinforced with a Tegaderm dressing to reestablish intact seal. The Cristino dressing is NOT a wound vac. This does not get changed, it does not need home health management. -Record output independently, drain 1. Is a deep drain and drain 2. Is a superficial drain. Wound drainage is described by type, color, amount, and odor. Drainage can be 1 Serous: Clear and thin, may be present in healing healthy wound. 2 Serosanguineous containing blood may also be present and healthy healing wound 3. Sanguinous primarily blood 4. Purulent this is thick, white, and pus like. It may be indicated to give of a infection and should constitute a call to the provider immediately with the plan that the sample should be cultured. -Tariq: discontinued in OR -Dressings Take care not to disrupt the CRISTINO dressing seal. If there is a break in the seal it can be trouble shot with a Tegaderm dressing. -Dressing to Hemovac drains may be changed once the drains have been removed by the provider. -Bowel management: -Colace 100mg bid -Diet: -Clear liquid diet and advance as patient tolerates within dietary limitations ( example: diabetic, Cardiac) -Incentive Spirometer: -10 x hour while awake, RN please educate and observe repeat demonstration, have IS at bedside POD #1 -X-rays: - none indicated at this time -Consults: -Physical Therapy evaluation, treatment recommendations, and discharge recommendations Call with questions Ban Garcia [facility]- Orthopaedic Spine Surgery nurse practitioner For Dr Soraya Perez Patient was examined, chart reviewed, labs evaluated, and diagnostic studies and findings analyzed. Case was discussed with Dr. Lazarus Perez who formulated the plan of care. This medical document was created using an electronic medical record system with [employer] dictation system. Although this document has been carefully reviewed, there might still be some phonetic and typographical errors. These areas are purely typographical due to imperfections of the software programs, and do not reflect any compromise in the patient's medical care. My Orders My Orders Orders - BESSIE GARCIA NP Procedure Category Date Status Time Convert To Saline RICK 09/01/24 In Process Lock When Ta 16:05 Plan discussed with Plan discussed with: Patient, Other Visit Coding Surgery Date of Service if different f: Aug 31, 2024 Billing Provider: BESSIE GARCIA NP Surgery Visit Codes: NOT BILLABLE BESSIE GARCIA NP Sep 02, 2024 08:05
[2024-09-02] MEDS: hydrALAZINE HCL 20 MG/ML VL IV PRN (11:47)
[2024-09-02] MEDS ORDERED: FIN5T PO (11:49)
[2024-09-02] MEDS ORDERED: PRAV20TA3 PO (11:49)
[2024-09-02] MEDS ORDERED: TRAM50TA2 PO (11:49)
[2024-09-02] MEDS ORDERED: TAMS0.4C39 PO (11:49)
[2024-09-02] MEDS ORDERED: TRAZ-227 PO (11:49)
[2024-09-02] MEDS ORDERED: DIAZ5TAB3 PO (11:49)
[2024-09-02] MEDS ORDERED: LISI20TA56 PO (11:49)
--- NOTE | 2024-09-02 15:55 | DVHPN2 ---
Progress Note Date Seen: Sep 02, 2024 Medical Necessity Reason Pt with a Central, PICC or Fol: No Subjective Patient reports: No new complaints Review of Systems: HEENT:Normal, CVS:Normal, RESPIRATORY:Normal, GI:Normal, :Normal, MSK:Normal, NEURO:Normal Objective vital signs Vital Sign Date Time Temp Pulse Resp B/P (MAP) Pulse Ox O2 Delivery O2 Flow Rate FiO2 09/02/24 15:37 94 18 149/72 09/02/24 13:41 98.9 97 98.9 09/02/24 08:00 Room Air* 0 21 Total Intake and Output 09/01/24 09/01/24 09/02/24 15:00 23:00 07:00 Intake Total 550 ml 800 ml Output Total 800 ml Balance 550 ml 0 ml medications Current Medications Medications Dose Ordered Sig/Domenic Route Start Time Stop Time Status Last Admin Dose Admin Dextrose/Sodium Chloride 1,000 ml @ 100 mls/hr Q10H IV 08/31/24 14:00 09/02/24 05:38 100 MLS/HR Ondansetron HCl 4 mg Q4HP PRN IV 08/31/24 14:00 08/31/24 17:54 4 MG Acetaminophen 650 mg Q6HP PRN PO 08/31/24 14:00 Acetaminophen/ Hydrocodone Bitart 1 tab Q6HP PRN PO 08/31/24 14:00 09/01/24 22:14 1 TAB Cyclobenzaprine HCl 10 mg TID PO 08/31/24 14:00 09/02/24 14:07 10 MG Docusate Sodium 100 mg BID PO 08/31/24 22:00 09/02/24 09:46 100 MG Nitroglycerin 0.4 mg Q5MINP PRN SL 08/31/24 14:00 Morphine Sulfate 2 mg Q30M PRN IV 08/31/24 14:00 Morphine Sulfate 2 mg Q4HP PRN IV 08/31/24 15:00 09/02/24 15:37 2 MG Hydralazine HCl 10 mg Q6HP PRN IV 08/31/24 16:45 09/02/24 11:47 10 MG Examination: GENERAL:Normal, HEENT:Normal, NECK:Normal, LUNGS:Normal, CVS:Normal, ABDOMEN:Normal, MSK:Normal, MSK:Abnormal (DRAINS+), SKIN:Normal, NEURO:Normal, :Normal laboratory and microbiology Laboratory Tests 09/01/24 04:43 Test 09/01/24 04:43 Range/Units Serum Glucose 168 H 74-106 mg/dL Problem List/Assessment/Plan Problem List/Assessment/Plan * Hypertension, for which the patient's blood pressure will be monitored. * Hyperlipidemia. * Status post lumbar spine surgery for lumbar canal stenosis for which the patient will be placed on pain medications and IV fluids. advance care planning- full code- time spent 19 mins Plan discussed with: Patient Date of Service: Sep 02, 2024 Billing Provider: YAMILE PRADO MD Common Visit Codes: [id number] INP/OBS CARE(HIGH) YAMILE PRADO MD Sep 02, 2024 15:55
[2024-09-02] MEDS: TAMSULOSIN HYDROCHLORIDE 0.4 MG CAP PO SCH (17:13)
[2024-09-02] MEDS: LISINOPRIL 20 MG TAB PO ONE (17:16)
[2024-09-02] MEDS: D5W/SOD CHLO 0.9% 1,000 ML IV SCH (17:17)
[2024-09-03] VITALS (8 sets, daily range): BP systolic 103–151; BP diastolic 47–74; PULSE 81–106; RESP 18–20; TEMP 97.8–99.1; O2SAT 93–97
[2024-09-03] MEDS: FINASTERIDE 5 MG TAB PO SCH (09:40)
[2024-09-03] MEDS: LISINOPRIL 20 MG TAB PO SCH (09:40)
--- NOTE | 2024-09-03 13:28 | DVHPN2 ---
Subjective denies any pain now/no bm/is passing flatus/ Changes from previous H/P or p: No Changes Objective Vitals Vital Signs Date Time Temp Pulse Resp B/P (MAP) Pulse Ox O2 Delivery O2 Flow Rate FiO2 09/03/24 12:34 98.2 86 18 117/61 (79) 95 98.2 09/03/24 08:00 Room Air* 0 21 Intake/Output Intake and Output 09/03/24 07:00 Intake Total 2855 ml Output Total 1500 ml Balance 1355 ml Intake Oral 1730 ml IV Total 1125 ml Output Urine Total 1500 ml # Bowel Movements 1 General Appearance: Alert, Oriented X3, Cooperative, No acute distress Lungs: Clear to auscultation Cardiovascular: Regular rate, Normal S1, Normal S2 Abdomen: Normal bowel sounds, Soft, No tenderness, No hepatospenomegaly Musculoskeletal: Normal sensory function, Normal motor function Neuro: Normal gait, Normal speech, Strength at 5/5 X4 ext Psych/Mental Status: Mental status NL, Mood NL Medications Current Medications Medications Dose Ordered Sig/Domenic Route Start Time Stop Time Status Last Admin Dose Admin Ondansetron HCl 4 mg Q4HP PRN IV 08/31/24 14:00 08/31/24 17:54 4 MG Acetaminophen 650 mg Q6HP PRN PO 08/31/24 14:00 Acetaminophen/ Hydrocodone Bitart 1 tab Q6HP PRN PO 08/31/24 14:00 09/03/24 09:40 1 TAB Cyclobenzaprine HCl 10 mg TID PO 08/31/24 14:00 09/03/24 06:01 10 MG Docusate Sodium 100 mg BID PO 08/31/24 22:00 09/03/24 09:41 100 MG Nitroglycerin 0.4 mg Q5MINP PRN SL 08/31/24 14:00 Morphine Sulfate 2 mg Q30M PRN IV 08/31/24 14:00 Morphine Sulfate 2 mg Q4HP PRN IV 08/31/24 15:00 09/02/24 20:30 2 MG Hydralazine HCl 10 mg Q6HP PRN IV 08/31/24 16:45 09/02/24 11:47 10 MG Dextrose/Sodium Chloride 1,000 ml @ 75 mls/hr [id number] IV 09/02/24 16:15 09/02/24 17:17 75 MLS/HR Lisinopril 20 mg DAILY PO 09/03/24 10:00 09/03/24 09:40 20 MG Tamsulosin HCl 0.4 mg QPM PO 09/02/24 18:00 09/02/24 17:13 0.4 MG Finasteride 5 mg DAILY PO 09/03/24 10:00 09/03/24 09:40 5 MG Laboratory Results Laboratory Tests 09/01/24 04:43 Urinalysis Test 08/30/24 09:35 Urine Color Yellow (Yellow) Urine Clarity Clear (Clear) Urine pH 5.5 (5.0-9.0) Urine Specific [place] 1.017 (1.001-1.035) Urine Protein Negative (Negative) Urine Ketones Negative (Negative) Urine Blood Negative /uL (Negative) Urine Nitrite Negative (Negative) Urine Bilirubin Negative (Negative) Urine Urobilinogen Normal mg/dL (Negative) Urine Leukocyte Esterase Negative /uL (Negative) Urine RBC 1 /hpf (0 - 3) Urine Microscopic WBC 1 /HPF (0-3) Urine Squamous Epithelial Cells Few /hpf (<5) Urine Bacteria None seen /hpf (None Seen) Urine Glucose Normal mg/dL (Normal) Assessment/Plan Assessment/Plan s/p lumbar decompression l3-l5/pain controlled/incision clean/drainage tube still draining htn stable ambulatory status Plan discussed with: Patient Date of Service: Sep 03, 2024 Billing Provider: AALIYAH CHARLES MD Common Visit Codes: [id number] INP/OBS CARE(MOD) AALIYAH CHARLES MD Sep 03, 2024 13:28
[2024-09-03] MEDS: DOCUSATE SOD 100 MG CAP PO ONE (17:27)
[2024-09-03] MEDS: DOCUSATE SOD 100 MG CAP PO SCH (21:05)
--- NOTE | 2024-09-03 23:13 | DVHPN2 ---
Progress Note - Surgical Date Seen: Sep 03, 2024 Post op day Post op day: 3 Subjective Patient reports: No new complaints, Feels better Review of Systems: HEENT:Normal, CVS:Normal, RESPIRATORY:Normal, GI:Normal, :Normal, MSK:Normal, NEURO:Normal (Patient reporting improvement in preoperative symptoms to bilateral lower legs and low back) Objective Vital signs Vital Sign Date Time Temp Pulse Resp B/P (MAP) Pulse Ox O2 Delivery O2 Flow Rate FiO2 09/03/24 21:00 98.5 106 20 151/74 (99) 94 98.5 09/03/24 08:00 Room Air* 0 21 Total Intake and Output 09/02/24 09/02/24 09/03/24 15:00 23:00 07:00 Intake Total 50 ml 1855 ml 950 ml Output Total 600 ml 900 ml Balance 50 ml 1255 ml 50 ml Medications Current Medications Medications Dose Ordered Sig/Domenic Route Start Time Stop Time Status Last Admin Dose Admin Ondansetron HCl 4 mg Q4HP PRN IV 08/31/24 14:00 08/31/24 17:54 4 MG Acetaminophen 650 mg Q6HP PRN PO 08/31/24 14:00 Acetaminophen/ Hydrocodone Bitart 1 tab Q6HP PRN PO 08/31/24 14:00 09/03/24 16:46 1 TAB Cyclobenzaprine HCl 10 mg TID PO 08/31/24 14:00 09/03/24 21:04 10 MG Nitroglycerin 0.4 mg Q5MINP PRN SL 08/31/24 14:00 Morphine Sulfate 2 mg Q30M PRN IV 08/31/24 14:00 Morphine Sulfate 2 mg Q4HP PRN IV 08/31/24 15:00 09/02/24 20:30 2 MG Hydralazine HCl 10 mg Q6HP PRN IV 08/31/24 16:45 09/02/24 11:47 10 MG Dextrose/Sodium Chloride 1,000 ml @ 75 mls/hr [id number] IV 09/02/24 16:15 09/03/24 17:28 75 MLS/HR Lisinopril 20 mg DAILY PO 09/03/24 10:00 09/03/24 09:40 20 MG Tamsulosin HCl 0.4 mg QPM PO 09/02/24 18:00 09/03/24 17:27 0.4 MG Finasteride 5 mg DAILY PO 09/03/24 10:00 09/03/24 09:40 5 MG Docusate Sodium 100 mg BID PO 09/03/24 22:00 09/03/24 21:05 100 MG Laboratory Laboratory Tests 09/01/24 04:43 Test 09/01/24 04:43 Range/Units Serum Glucose 168 H 74-106 mg/dL Examination: GENERAL:Normal, HEENT:Normal, NECK:Normal, LUNGS:Normal, CVS:Normal, ABDOMEN:Normal, MSK:Normal, SKIN:Normal (Drain 1. Output still high we will re-evaluate on 09-04-2024), NEURO:Normal, :Normal Problem List/Assessment/Plan Problems: (1) Muscle spasm of back (2) Postoperative pain after spinal surgery Assessment and Plan Events of today Continue to monitor drain one Patient mobility improving, pain is well controlled at this time Patient reporting resolution and preoperative symptoms, patient experiencing expected postoperative pain Patient is progressing to discharge as soon as drain 1 is discontinued, patient will be cleared to discharge POD # 3 -Disposition: -Pending -Discharge RX: Pending -Follow up appointment: [place] [address] [facility] [address] [place] [id number] -Pain: - IV pain meds post op day 1, with PO supplementation, goal is to progress weaning off IV medications and control pain with PO only. morphine 1mg q 4 hours (PAIN 7-10) - P.O. analgesics:Tylenol 650MG (PAIN 1-3) [place] 10/325 mg (PAIN 4-6) - Muscle relaxers scheduled administration. This is a beneficial medications for the incisional pain as it is mostly related to muscle spasms. Flexeril 10 mg TID - Cepacol throat lozenges as needed for sore throat -Antibiotics Operative recommendations: -Postoperative dose:-Post operative antibiotics cefazolin 1 g IV piggyback every 8 hours x 48 hours total of 6 doses -DVT PPX: -Hold all chemical DVT/ blood thinners for 14 days postoperatively -use mechanical DVT PPX such as SCD's, ambulation -Activity: -Pending PT evaluation and patients progression -Sit at side of bed for meals -Goal: Ambulate independently and safely (may use assistive devices if needed) -Medical Therapy goals: -Afebrile- Patient may develop a expected post operative fever by day 2-3, this may not be accompanied with a elevation in WBC. if fever develops: Acetaminophen for fever. Albuterol nebulizer Tx every 12 hours for 24 hours to facilitate adequate lung expansion and prevent development of atelectasis. -Euglycemic: bloods sugars under 130mmol/L for optimal healing -Normotensive: Avoid events of hypertension. This helps to keep post operative healing intact and avoids destabilization of beneficial hemostatic coagulation. -Lumbar: -If patient is comfortable encouraged the patient to lay on their side to facilitate wound healing -Drains: -Hemovac drains: These will be to full compression unless otherwise ordered. Please record and document output AND characteristic of fluid present independently EVERY 6 hours more often as needed. if there in no output indicate this by documenting 0ml. If output is greater than 100 ml in one hour of adam blood call provider. These drains will be removed once the drainage is at a acceptable level (generally less than 100ml in 24 hours) -Cristino dressing: This will stay in place and will be removed at the patients follow up visit. Nursing is to assess the seal and power source. The seal should be intact and the power source should have a green flashing light indicating it is functioning well. Batteries can last up to 14 days. If a leak develops the dressing edges can be reinforced with a Tegaderm dressing to reestablish intact seal. The Cristino dressing is NOT a wound vac. This does not get changed, it does not need home health management. -Record output independently, drain 1. Is a deep drain and drain 2. Is a superficial drain. Wound drainage is described by type, color, amount, and odor. Drainage can be 1 Serous: Clear and thin, may be present in healing healthy wound. 2 Serosanguineous containing blood may also be present and healthy healing wound 3. Sanguinous primarily blood 4. Purulent this is thick, white, and pus like. It may be indicated to give of a infection and should constitute a call to the provider immediately with the plan that the sample should be cultured. -Tariq: discontinued in OR -Dressings Take care not to disrupt the CRISTINO dressing seal. If there is a break in the seal it can be trouble shot with a Tegaderm dressing. -Dressing to Hemovac drains may be changed once the drains have been removed by the provider. -Bowel management: -Colace 100mg bid -Diet: -Clear liquid diet and advance as patient tolerates within dietary limitations ( example: diabetic, Cardiac) -Incentive Spirometer: -10 x hour while awake, RN please educate and observe repeat demonstration, have IS at bedside POD #1 -X-rays: - none indicated at this time -Consults: -Physical Therapy evaluation, treatment recommendations, and discharge recommendations Call with questions Ban Gómez [facility]- Orthopaedic Spine Surgery nurse practitioner For Dr Soraya Perez Patient was examined, chart reviewed, labs evaluated, and diagnostic studies and findings analyzed. Case was discussed with Dr. Lazarus Perez who formulated the plan of care. This medical document was created using an electronic medical record system with [employer] dictation system. Although this document has been carefully reviewed, there might still be some phonetic and typographical errors. These areas are purely typographical due to imperfections of the software programs, and do not reflect any compromise in the patient's medical care. Plan discussed with Plan discussed with: Patient Visit Coding Surgery Date of Service if different f: Aug 31, 2024 Billing Provider: BESSIE GÓMEZ NP Surgery Visit Codes: NOT BILLABLE BESSIE GÓMEZ NP Sep 03, 2024 23:13
[2024-09-04] VITALS (8 sets, daily range): BP systolic 101–143; BP diastolic 50–74; PULSE 81–93; RESP 15–19; TEMP 97.9–98.3; O2SAT 93–97
--- NOTE | 2024-09-04 11:17 | DVHPN2 ---
Progress Note - Surgical Date Seen: Sep 04, 2024 Post op day Post op day: 4 Subjective Patient reports: No new complaints, Feels better Review of Systems: HEENT:Normal, CVS:Normal, RESPIRATORY:Normal, GI:Normal, :Normal, MSK:Abnormal (preoperative symptoms: pain to bilateral lower legs and low back), NEURO:Abnormal (Lumbar radiculopathies) Objective Vital signs Vital Sign Date Time Temp Pulse Resp B/P (MAP) Pulse Ox O2 Delivery O2 Flow Rate FiO2 09/04/24 09:37 117/61 09/04/24 09:00 98.2 86 15 97 98.2 09/03/24 20:00 Room Air* 0 21 Total Intake and Output 09/03/24 09/03/24 09/04/24 15:00 23:00 07:00 Intake Total 1235 ml 400 ml Output Total 900 ml Balance 1235 ml -500 ml Medications Current Medications Medications Dose Ordered Sig/Domenic Route Start Time Stop Time Status Last Admin Dose Admin Ondansetron HCl 4 mg Q4HP PRN IV 08/31/24 14:00 08/31/24 17:54 4 MG Acetaminophen 650 mg Q6HP PRN PO 08/31/24 14:00 Acetaminophen/ Hydrocodone Bitart 1 tab Q6HP PRN PO 08/31/24 14:00 09/04/24 09:37 1 TAB Cyclobenzaprine HCl 10 mg TID PO 08/31/24 14:00 09/04/24 05:32 10 MG Nitroglycerin 0.4 mg Q5MINP PRN SL 08/31/24 14:00 Morphine Sulfate 2 mg Q30M PRN IV 08/31/24 14:00 Morphine Sulfate 2 mg Q4HP PRN IV 08/31/24 15:00 09/02/24 20:30 2 MG Hydralazine HCl 10 mg Q6HP PRN IV 08/31/24 16:45 09/02/24 11:47 10 MG Dextrose/Sodium Chloride 1,000 ml @ 75 mls/hr [id number] IV 09/02/24 16:15 09/03/24 17:28 75 MLS/HR Lisinopril 20 mg DAILY PO 09/03/24 10:00 09/04/24 09:37 20 MG Tamsulosin HCl 0.4 mg QPM PO 09/02/24 18:00 6/20/25 17:27 0.4 MG Finasteride 5 mg DAILY PO 09/03/24 10:00 09/04/24 09:36 5 MG Docusate Sodium 100 mg BID PO 09/03/24 22:00 09/04/24 09:37 100 MG Laboratory Laboratory Tests 09/01/24 04:43 Test 09/01/24 04:43 Range/Units Serum Glucose 168 H 74-106 mg/dL Examination: GENERAL:Normal, HEENT:Normal, NECK:Normal, LUNGS:Normal, CVS:Normal, ABDOMEN:Normal, MSK:Normal (Improvement reported from preoperative state per patient), SKIN:Normal (Cristino dressing intact and functional drains assess today), NEURO:Normal (Patient reporting improvement in preoperative symptoms to bilateral lower legs and low back), :Normal Problem List/Assessment/Plan Problems: (1) Muscle spasm of back (2) Postoperative pain after spinal surgery Assessment and Plan Events of today Drain DC today, plan to DC tomorrow morning C/O sore throat- meds ordered Patient mobility improving, pain is well controlled at this time Patient reporting resolution and preoperative symptoms, patient experiencing expected postoperative pain Patient is progressing to discharge -plan to DC friday morning. POD # 4 -Disposition: -Pending -Discharge RX: Pending -Follow up appointment: [place] [id number] [facility] [address] [place] [id number] -Pain: - IV pain meds post op day 1, with PO supplementation, goal is to progress weaning off IV medications and control pain with PO only. morphine 1mg q 4 hours (PAIN 7-10) - P.O. analgesics:Tylenol 650MG (PAIN 1-3) [place] 10/325 mg (PAIN 4-6) - Muscle relaxers scheduled administration. This is a beneficial medications for the incisional pain as it is mostly related to muscle spasms. Flexeril 10 mg TID - Cepacol throat lozenges as needed for sore throat -Antibiotics Operative recommendations: -Postoperative dose:-Post operative antibiotics cefazolin 1 g IV piggyback every 8 hours x 48 hours total of 6 doses -DVT PPX: -Hold all chemical DVT/ blood thinners for 14 days postoperatively -use mechanical DVT PPX such as SCD's, ambulation -Activity: -Pending PT evaluation and patients progression -Sit at side of bed for meals -Goal: Ambulate independently and safely (may use assistive devices if needed) -Medical Therapy goals: -Afebrile- Patient may develop a expected post operative fever by day 2-3, this may not be accompanied with a elevation in WBC. if fever develops: Acetaminophen for fever. Albuterol nebulizer Tx every 12 hours for 24 hours to facilitate adequate lung expansion and prevent development of atelectasis. -Euglycemic: bloods sugars under 130mmol/L for optimal healing -Normotensive: Avoid events of hypertension. This helps to keep post operative healing intact and avoids destabilization of beneficial hemostatic coagulation. -Lumbar: -If patient is comfortable encouraged the patient to lay on their side to facilitate wound healing -Dressings Take care not to disrupt the CRISTINO dressing seal. If there is a break in the seal it can be trouble shot with a Tegaderm dressing. -Bowel management: -Colace 100mg bid -Diet: -Clear liquid diet and advance as patient tolerates within dietary limitations ( example: diabetic, Cardiac) -Incentive Spirometer: -10 x hour while awake, RN please educate and observe repeat demonstration, have IS at bedside POD #1 -X-rays: - none indicated at this time -Consults: -Physical Therapy evaluation, treatment recommendations, and discharge recommendations Call with questions Ban Gó[facility]z [facility] Orth[facility]edic Spine Surgery nurse practitioner For Dr Soraya Perez Patient was examined, chart reviewed, labs evaluated, and diagnostic studies and findings analyzed. Case was discussed with Dr. Lazarus Perez who formulated the plan of care. This medical document was created using an electronic medical record system with [employer] dictation system. Although this document has been carefully reviewed, there might still be some phonetic and typographical errors. These areas are purely typographical due to imperfections of the software programs, and do not reflect any compromise in the patient's medical care. Plan discussed with Plan discussed with: Patient, Other (Judy x [phone]) Visit Coding Surgery Date of Service if different f: Aug 31, 2024 Billing Provider: BESSIE GÓMEZ NP Surgery Visit Codes: NOT BILLABLE BESSIE GÓMEZ NP Sep 04, 2024 11:17
[2024-09-04 11:49] LABS: COVID19 ANTIGEN SOFIA FIA NEGATIVE (NEGATIVE)
--- NOTE | 2024-09-04 13:38 | DVHPN2 ---
Subjective denies any pain now/no bm/is passing flatus/mild sore throat but no pain on swallowing covid test is negative ? from et tube Changes from previous H/P or p: No Changes Objective Vitals Vital Signs Date Time Temp Pulse Resp B/P (MAP) Pulse Ox O2 Delivery O2 Flow Rate FiO2 09/04/24 09:37 117/61 09/04/24 09:00 98.2 86 15 97 98.2 09/04/24 08:00 Room Air* 0 21 Intake/Output Intake and Output 09/04/24 07:00 Intake Total 1635 ml Output Total 900 ml Balance 735 ml Intake Oral 1560 ml IV Total 75 ml Output Urine Total 900 ml # Voids 8 # Bowel Movements 1 General Appearance: Alert, Oriented X3, Cooperative, No acute distress Lungs: Clear to auscultation Cardiovascular: Regular rate, Normal S1, Normal S2 Abdomen: Normal bowel sounds, Soft, No tenderness, No hepatospenomegaly Musculoskeletal: Normal sensory function, Normal motor function Neuro: Normal gait, Normal speech, Strength at 5/5 X4 ext Psych/Mental Status: Mental status NL, Mood NL Medications Current Medications Medications Dose Ordered Sig/Domenic Route Start Time Stop Time Status Last Admin Dose Admin Ondansetron HCl 4 mg Q4HP PRN IV 08/31/24 14:00 08/31/24 17:54 4 MG Acetaminophen 650 mg Q6HP PRN PO 08/31/24 14:00 Acetaminophen/ Hydrocodone Bitart 1 tab Q6HP PRN PO 08/31/24 14:00 09/04/24 09:37 1 TAB Cyclobenzaprine HCl 10 mg TID PO 08/31/24 14:00 09/04/24 05:32 10 MG Nitroglycerin 0.4 mg Q5MINP PRN SL 08/31/24 14:00 Morphine Sulfate 2 mg Q30M PRN IV 08/31/24 14:00 Morphine Sulfate 2 mg Q4HP PRN IV 08/31/24 15:00 09/02/24 20:30 2 MG Hydralazine HCl 10 mg Q6HP PRN IV 08/31/24 16:45 09/02/24 11:47 10 MG Dextrose/Sodium Chloride 1,000 ml @ 75 mls/hr [id number] IV 09/02/24 16:15 09/03/24 17:28 75 MLS/HR Lisinopril 20 mg DAILY PO 09/03/24 10:00 09/04/24 09:37 20 MG Tamsulosin HCl 0.4 mg QPM PO 09/02/24 18:00 09/03/24 17:27 0.4 MG Finasteride 5 mg DAILY PO 09/03/24 10:00 09/04/24 09:36 5 MG Docusate Sodium 100 mg BID PO 09/03/24 22:00 09/04/24 09:37 100 MG Laboratory Results Laboratory Tests 09/01/24 04:43 Urinalysis Test 08/30/24 09:35 Urine Color Yellow (Yellow) Urine Clarity Clear (Clear) Urine pH 5.5 (5.0-9.0) Urine Specific [place] 1.017 (1.001-1.035) Urine Protein Negative (Negative) Urine Ketones Negative (Negative) Urine Blood Negative /uL (Negative) Urine Nitrite Negative (Negative) Urine Bilirubin Negative (Negative) Urine Urobilinogen Normal mg/dL (Negative) Urine Leukocyte Esterase Negative /uL (Negative) Urine RBC 1 /hpf (0 - 3) Urine Microscopic WBC 1 /HPF (0-3) Urine Squamous Epithelial Cells Few /hpf (<5) Urine Bacteria None seen /hpf (None Seen) Urine Glucose Normal mg/dL (Normal) Labs and/or images reviewed: Labs reviewed by me Assessment/Plan Assessment/Plan s/p lumbar decompression l3-l5/pain controlled/incision clean/drainage tube still draining htn stable throat examined normal/covid test is negative/monitor-? from et tube irritation ambulatory status Plan discussed with: Patient, Other Date of Service: Sep 04, 2024 Billing Provider: AALIYAH CHARLES MD Common Visit Codes: [id number] INP/OBS CARE(MOD) AALIYAH CHARLES MD Sep 04, 2024 13:38
[2024-09-04] MEDS: DexAMETHasone SOD PHOS 10MG/1ML VIAL INJ IV ONE (17:31)
[2024-09-04] MEDS: THROAT LOZENGES(CEPASTAT) MT PRN (18:47)
[2024-09-05 01:00] VITALS: BP 94/39; PULSE 85; RESP 19; TEMP 97.7; O2SAT 92
[2024-09-05 08:00] VITALS: PULSE 85
[2024-09-05 09:00] VITALS: BP 130/62; PULSE 100; RESP 16; TEMP 97.9; O2SAT 96
[2024-09-05 13:00] VITALS: BP 108/58; PULSE 86; RESP 15; TEMP 97.9; O2SAT 96
--- NOTE | 2024-09-05 13:01 | DVHPN2 ---
Progress Note - Surgical Date Seen: Sep 05, 2024 Post op day Post op day: 5 Subjective Patient reports: No new complaints (spine related symptoms improved, sore throat is worse) Review of Systems: HEENT:Abnormal (sore throat is worse, pt reposrted hospitalist is ordering PCN [place]), CVS:Normal, RESPIRATORY:Normal, GI:Normal, :Normal, MSK:Normal (improved in all preop symp), NEURO:Normal Objective Vital signs Vital Sign Date Time Temp Pulse Resp B/P (MAP) Pulse Ox O2 Delivery O2 Flow Rate FiO2 09/05/24 09:52 130/62 09/05/24 09:00 97.9 100 16 96 97.9 09/05/24 08:00 Room Air* 0 21 Total Intake and Output 09/04/24 09/04/24 09/05/24 15:00 23:00 07:00 Intake Total 480 ml Output Total 40 ml Balance -40 ml 480 ml Medications Current Medications Medications Dose Ordered Sig/Domenic Route Start Time Stop Time Status Last Admin Dose Admin Ondansetron HCl 4 mg Q4HP PRN IV 08/31/24 14:00 08/31/24 17:54 4 MG Acetaminophen 650 mg Q6HP PRN PO 08/31/24 14:00 Acetaminophen/ Hydrocodone Bitart 1 tab Q6HP PRN PO 08/31/24 14:00 09/05/24 09:51 1 TAB Cyclobenzaprine HCl 10 mg TID PO 08/31/24 14:00 09/05/24 05:54 10 MG Nitroglycerin 0.4 mg Q5MINP PRN SL 08/31/24 14:00 Morphine Sulfate 2 mg Q30M PRN IV 08/31/24 14:00 Morphine Sulfate 2 mg Q4HP PRN IV 08/31/24 15:00 09/02/24 20:30 2 MG Hydralazine HCl 10 mg Q6HP PRN IV 08/31/24 16:45 09/02/24 11:47 10 MG Dextrose/Sodium Chloride 1,000 ml @ 75 mls/hr [id number] IV 09/02/24 16:15 09/03/24 17:28 75 MLS/HR Lisinopril 20 mg DAILY PO 09/03/24 10:00 09/05/24 09:52 20 MG Tamsulosin HCl 0.4 mg QPM PO 09/02/24 18:00 09/04/24 17:31 0.4 MG Finasteride 5 mg DAILY PO 09/03/24 10:00 09/04/24 09:36 5 MG Docusate Sodium 100 mg BID PO 09/03/24 22:00 09/05/24 09:51 100 MG Throat Lozenges 1 nola Q2HP PRN MT 09/04/24 16:30 09/04/24 18:47 1 [place] Laboratory Laboratory Tests 09/01/24 04:43 Test 09/01/24 04:43 Range/Units Serum Glucose 168 H 74-106 mg/dL Examination: GENERAL:Normal, HEENT:Abnormal (sore throat is worse, pt reposrted hospitalist is ordering PCN [place]), NECK:Abnormal (sore throat ), CVS:Normal, ABDOMEN:Normal, MSK:Normal, SKIN:Normal, NEURO:Normal, :Normal Problem List/Assessment/Plan Problems: (1) Sore throat (2) Muscle spasm of back (3) Postoperative pain after spinal surgery Assessment and Plan Events of today C/O sore throat- hospitalist will be adding meds per patient Patient mobility improving, pain is well controlled at this time Patient reporting resolution and preoperative symptoms, patient experiencing expected postoperative pain Patient to discharge today POD # 5 -Disposition: -home with home health -Discharge RX: pain meds and muscle relaxers -Follow up appointment: with Dr Perez on your appointment date [phone] [id number] [facility] [address] [place] [id number] -Pain: - IV pain meds post op day 1, with PO supplementation, goal is to progress weaning off IV medications and control pain with PO only. morphine 1mg q 4 hours (PAIN 7-10) - P.O. analgesics:Tylenol 650MG (PAIN 1-3) [place] 10/325 mg (PAIN 4-6) - Muscle relaxers scheduled administration. This is a beneficial medications for the incisional pain as it is mostly related to muscle spasms. Flexeril 10 mg TID - Cepacol throat lozenges as needed for sore throat -DVT PPX: -Hold all chemical DVT/ blood thinners for 14 days postoperatively -use mechanical DVT PPX such as SCD's, ambulation -Activity: -Sit at side of bed for meals -Goal: Ambulate independently and safely (may use assistive devices if needed) -Medical Therapy goals: -Afebrile- Patient may develop a expected post operative fever by day 2-3, this may not be accompanied with a elevation in WBC. if fever develops: Acetaminophen for fever. Albuterol nebulizer Tx every 12 hours for 24 hours to facilitate adequate lung expansion and prevent development of atelectasis. -Euglycemic: bloods sugars under 130mmol/L for optimal healing -Normotensive: Avoid events of hypertension. This helps to keep post operative healing intact and avoids destabilization of beneficial hemostatic coagulation. -Lumbar: -If patient is comfortable encouraged the patient to lay on their side to facilitate wound healing -Dressings Take care not to disrupt the CRISTINO dressing seal. If there is a break in the seal it can be trouble shot with a Tegaderm dressing. -Bowel management: -Colace 100mg bid -Diet: - tolerating -Incentive Spirometer: -10 x hour while awake, RN please educate and observe repeat demonstration, have IS at bedside POD #1 -X-rays: - none indicated at this time Call with questions Ban Gómez ACNP- Orthopaedic Spine Surgery nurse practitioner For Dr Soraya Perez Patient was examined, chart reviewed, labs evaluated, and diagnostic studies and findings analyzed. Case was discussed with Dr. Lazarus Perez who formulated the plan of care. This medical document was created using an electronic medical record system with [employer] dictation system. Although this document has been carefully reviewed, there might still be some phonetic and typographical errors. These areas are purely typographical due to imperfections of the software programs, and do not reflect any compromise in the patient's medical care. Plan discussed with Plan discussed with: Patient Visit Coding Surgery Date of Service if different f: Aug 31, 2024 Billing Provider: BESSIE GÓMEZ NP Surgery Visit Codes: NOT BILLABLE BESSIE GÓMEZ NP Sep 05, 2024 13:01
[2024-09-05] MEDS ORDERED: HYDR-4798 PO (13:07)
[2024-09-05] MEDS ORDERED: CYCL-611 PO (13:07)
--- NOTE | 2024-09-05 13:16 | DVHDS2 ---
ASSESSMENT ASSESSMENT Hospital Course The patient arrived for a elective spine surgery with Dr. PEREZ. Surgery went as planned with no complications. After a short stay in the PACU patient was admitted to the hospital for postoperative care and pain management over the course of 5 postoperative days the patient was able to tolerate a diet, ambulate independently, the pain has been managed with oral analgesics. The surgical site is well-approximated with sutures, some residual drainage continues from drain insertion sites after removal, however it is manageable with daily wound care and dressing changes. Some improvement to preoperative symptoms of extremities, strength and motion. There is new post operative pain that is localized to the surgical site. Patient did develop sore throat we will postoperatively COVID was negative The patient will follow-up with Dr. Perez for wound check and suture check or staple removal. Assessment Lumbar stenosis with neurogenic claudication Problems: (1) Postoperative pain after spinal surgery Assessments: Pain medications to patient's pharmacy of choice (2) Sore throat Assessments: Patient reports hospitalist is prescribing antibiotics (3) Muscle spasm of back Assessments: Antispasmodic sent to patient's pharmacy of choice BESSIE GARCIA NP Sep 05, 2024 13:16
[2024-09-05] MEDS ORDERED: AMOX250C3 PO (13:20)
--- NOTE | 2024-09-05 14:06 | DVHPN2 ---
Subjective denies any pain now/no bm/is passing flatus/mild sore throat but no pain on swallowing covid test is negative ? from et tube-not better with cepacol so amoxicillin added and sent on dc Changes from previous H/P or p: No Changes Objective Vitals Vital Signs Date Time Temp Pulse Resp B/P (MAP) Pulse Ox O2 Delivery O2 Flow Rate FiO2 09/05/24 09:52 130/62 09/05/24 09:00 97.9 100 16 96 97.9 09/05/24 08:00 Room Air* 0 21 Intake/Output Intake and Output 09/05/24 07:00 Intake Total 480 ml Output Total 40 ml Balance 440 ml Intake Oral 480 ml Drainage Total 40 ml # Voids 2 General Appearance: Alert, Oriented X3, Cooperative, No acute distress HEENT: Mucous membr. moist/pink Lungs: Clear to auscultation Cardiovascular: Regular rate, Normal S1, Normal S2 Abdomen: Normal bowel sounds, Soft, No tenderness, No hepatospenomegaly Musculoskeletal: Normal sensory function, Normal motor function Neuro: Normal gait, Normal speech, Strength at 5/5 X4 ext Psych/Mental Status: Mental status NL, Mood NL Medications Current Medications Medications Dose Ordered Sig/Domenic Route Start Time Stop Time Status Last Admin Dose Admin Acetaminophen 650 mg Q6HP PRN PO 08/31/24 14:00 Acetaminophen/ Hydrocodone Bitart 1 tab Q6HP PRN PO 08/31/24 14:00 09/05/24 09:51 1 TAB Cyclobenzaprine HCl 10 mg TID PO 08/31/24 14:00 09/05/24 05:54 10 MG Hydralazine HCl 10 mg Q6HP PRN IV 08/31/24 16:45 09/02/24 11:47 10 MG Lisinopril 20 mg DAILY PO 09/03/24 10:00 09/05/24 09:52 20 MG Tamsulosin HCl 0.4 mg QPM PO 09/02/24 18:00 09/04/24 17:31 0.4 MG Finasteride 5 mg DAILY PO 09/03/24 10:00 09/04/24 09:36 5 MG Docusate Sodium 100 mg BID PO 09/03/24 22:00 09/05/24 09:51 100 MG Throat Lozenges 1 nola Q2HP PRN MT 09/04/24 16:30 09/04/24 18:47 1 [place] Amoxicillin 500 mg Q8HR PO 09/05/24 14:00 Laboratory Results Laboratory Tests 09/01/24 04:43 Urinalysis Test 08/30/24 09:35 Urine Color Yellow (Yellow) Urine Clarity Clear (Clear) Urine pH 5.5 (5.0-9.0) Urine Specific [place] 1.017 (1.001-1.035) Urine Protein Negative (Negative) Urine Ketones Negative (Negative) Urine Blood Negative /uL (Negative) Urine Nitrite Negative (Negative) Urine Bilirubin Negative (Negative) Urine Urobilinogen Normal mg/dL (Negative) Urine Leukocyte Esterase Negative /uL (Negative) Urine RBC 1 /hpf (0 - 3) Urine Microscopic WBC 1 /HPF (0-3) Urine Squamous Epithelial Cells Few /hpf (<5) Urine Bacteria None seen /hpf (None Seen) Urine Glucose Normal mg/dL (Normal) Assessment/Plan Assessment/Plan s/p lumbar decompression l3-l5/pain controlled/incision clean/drainage tube still draining htn stable throat examined normal/covid test is negative/monitor-? from et tube irritation/added amoxicillin ambulatory status Plan discussed with: Patient My Orders Orders - AALIYAH CHARLES MD Procedure Category Date Status Time Amoxicillin Capsule PHA 09/05/24 In Process 14:00 Date of Service: Sep 05, 2024 Billing Provider: AALIYAH CHARLES MD Common Visit Codes: [id number] INP/OBS CARE(MOD) AALIYAH CHARLES MD Sep 05, 2024 14:06
[2024-09-05] MEDS: AMOXICILLIN TRIHYDRATE 250 MG CAP PO SCH (14:35)
[2024-09-05] MEDS: AMOXICILLIN TRIHYDRATE 250 MG CAP PO ONE (14:35)
[2024-09-05 14:43] VITALS: BP 108/58; PULSE 86; RESP 15; TEMP 97.9; O2SAT 96
== END 2024-09-05 14:32 | disposition home health service (06) | DRG 448 ==
LOC: SUR 08:47 → OVERFLOW 13:58 → TELE-WESTW 16:43
PROVIDERS: ADMIT Internal Medicine; ATTEND Internal Medicine
PROC: 00NY0ZZ Release Lumbar Spinal Cord, Open Approach (ICD-10-PCS; 2024-08-31)
PROC: 01NB0ZZ Release Lumbar Nerve, Open Approach (ICD-10-PCS; 2024-08-31)
PROC: 4A11X4G Monitoring of Peripheral Nervous Electrical Activity, Intraoperative, External Approach (ICD-10-PCS; 2024-08-31)
PROC: 0SG10K1 Fusion of 2 or more Lumbar Vertebral Joints with Nonautologous Tissue Substitute, Posterior Approach, Posterior Column, Open Approach (ICD-10-PCS; principal; 2024-08-31 11:07)
DX: M48.062 Spinal stenosis, lumbar region with neurogenic claudication (principal); I10 Essential (primary) hypertension; E78.5 Hyperlipidemia, unspecified; M51.16 Intervertebral disc disorders with radiculopathy, lumbar region; F17.200 Nicotine dependence, unspecified, uncomplicated; M47.26 Other spondylosis with radiculopathy, lumbar region; G89.18 Other acute postprocedural pain; M62.838 Other muscle spasm
CPT/HCPCS: 36415; 71045; 72100; 76000; 80053; 81001; 82962; 85025; 85610; 85730; 86850; 86900; 86901; 87426; 97110; 97116; 97163; 97530; A4344; G0378; J0131; J1100; J1956; J2250; J2405; J2704; J7042